=== PATIENT | female | born 1975 | race Caucasian/White ===

== ENCOUNTER 2017-04-21 13:15 | Day surgery (SDC) | payer BC, SELFPAY ==
[2017-04-16 15:20] LABS: Hematocrit 41.4 % (37-47); Hemoglobin 14.6 g/dl (12.0-15.0); Mean Corp Hgb Conc 35.3 g/gl (32-36); Mean Corpuscular Hgb 30.6 pg (27.0-32.0); Mean Corpuscular Volume 86.8 fL (81-99); Mean Platelet Vol. 8.6 fl (6.2-12.0); Platelet Count 221 K/mm3 (150-450); RBC Distribution Width CV 12.8 % (11.6-14.6); RBC Distribution Width SD 40.6 fl (35.1-43.9); Red Blood Count 4.77 M/mm3 (4.2-5.4); White Blood Count 6.2 K/mm3 (4.4-11.0)
[2017-04-16 15:28] LABS: Scan Indicated on CBC? Y/N NO
[2017-04-16 16:21] LABS: Prothrombin Time (Protime)PT. 13.1 SECONDS (11.7-14.9)
[2017-04-16 16:22] LABS: Partial Thromboplast Time 34.6 Seconds (24.1-36.2)
--- NOTE | 2017-04-21 13:23 | RAD_ITS ---
STUDY: X-RAY CHEST REASON FOR EXAM: Female, 42 years old. Preoperative evaluation. TECHNIQUE: PA and lateral views of the chest. COMPARISON: None. FINDINGS: The lungs are clear and expanded. There is no demonstrated pleural abnormality. Normal size heart. Normal mediastinum and domenica. Normal visualized pulmonary arteries. Normal visualized aortic arch and descending thoracic aorta. Normal visualized thoracic spine. Normal visualized ribs, clavicles, and shoulders. There is no demonstrated abnormality of the visualized soft tissue structures of the upper abdomen. RAD/Chest PA and Lateral IMPRESSION: Normal x-ray examination of the chest. Electronically Signed: Joni Stern MD at 13:37 EST Tel [phone], Service support ,
--- NOTE | 2017-04-21 13:24 | EKG12_ITS ---
Test Reason : PRE OP Blood Pressure : / mmHG Vent. Rate : 079 BPM Atrial Rate : 079 BPM P-R Int : 146 ms QRS Dur : 084 ms QT Int : 394 ms P-R-T Axes : 060 039 052 degrees QTc Int : 451 ms Normal sinus rhythm Normal ECG No previous ECGs available Confirmed by AMIRA ARAGON, ALO ([id number]), international editorial producer HEATH GARCIA ([id number] on 04/26/2017 3:44:43 PM Referred By: Karen Maguire Confirmed By:ALO COLLIER MD
[2017-04-21 13:52] LABS: Internal QC Validated? YES +Cl - CLEAR BKGD; Pregnancy, Urine Negative Negative
[2017-04-21 13:58] VITALS: BP 136/84; PULSE 79; RESP 16; TEMP 37.3; O2SAT 100; BMI 28.0
[2017-04-21 14:11] LABS: Thyroid Stim Hormone (TSH) 1.51 uIU/mL (0.358-3.74)
--- NOTE | 2017-04-21 15:00 | OV_PTH ---
PATIENT: FRANCISCA SEGURA LOC: [facility] [place] U#:[id number] AGE/SX: 42/F ROOM: RE04/21/[address]: Dr. Karen Maguire MD : [id number] BED: DIS: 04/21/2017 SPEC #: [id number] RECD: 04/22/17 08:36 STATUS: VANGIE KACY #: [id number] DANE: 04/21/17 15:[address]: Karen Maguire DEPT: SURGICAL PATHOLOGY RECD BY: Dilip Smith ENTERED: 04/22/17 09:00 SP TYPE: OVARY OTHR DR: Dr. Azul Maciel, DO Tissues: Ovary, NOS Procedures: Surgery Specimen Level IV HEADER OPERATION: Laparoscopic salpingo-oophorectomy PRE-OP DIAGNOSIS: Estrogen positive status, history of malignant neoplasm of breast TISSUE SUBMITTED: Bilateral tubes and ovaries MICROSCOPIC DIAGNOSIS Bilateral fallopian tubes and ovaries, salpingo-oophorectomy: One ovary ? fibroma/thecoma (0.3 cm in greatest dimension). Bilateral ovaries ? physiologic follicular cysts. Bilateral fallopian tubes - no pathologic diagnosis. Paratubal cyst. SJ:rg 04/26/17 MICROSCOPIC DESCRIPTION Slides are reviewed. GROSS DESCRIPTION Received in fixative is one container labeled with the patient's name and designated bilateral tubes and ovaries. The specimen consists of bilateral ovaries and bilateral fallopian tubes. The ovaries and fallopian tubes are present separately. No orientation is provided as of right or left. One of the ovaries measures 3 x 3 x 1.8 cm. Sections reveal multiple cysts. The largest cyst measures 1 cm in greatest dimension. The cysts are filled with clear fluid. The second ovary is similar appearance to first one and measures 3 x 3 x 2 cm. A minute burrows-white nodule is noted on the surface measuring 0.3 cm in greatest dimension. This area is inked black. Sections reveal multiple cysts. The largest cyst measures 1.5 cm in greatest dimension. The cysts are filled with clear fluid. The cyst wall is smooth. No papillations are identified in the cyst wall in both ovaries. One of the fallopian tubes measures 3 cm in length and 0.4 cm in diameter. Two paratubal cysts are noted measuring 0.5 and 1 cm in greatest dimension. The fimbrial end is identified. The second fallopian tube is received in multiple pieces and measures in aggregate 3.5 x 2.5 x 0.5 cm. The fimbrial end is identified. Sections of both fallopian tubes reveal unremarkable cut surfaces. Cable Tv Installer sections are submitted in six cassettes as follows: 1 & 2 ? one ovary, 3 & 4 ? second ovary (4 also contains the solid, burrows nodule on the ovarian surface), 5 ? one fallopian tube and paratubal cyst, 6 ? second fallopian tube (received in multiple pieces). / SAEID:calvin 04/22/17 TC:1 CPT: 16786 x2
--- NOTE | 2017-04-21 15:27 | PCM.DC ---
You will use the following diet at home:: No restrictions Discharge Activity: May not drive while taking narcotic pain medications., May Shower, May Take a Tub Bath Return to work on:: 04/26/17 May resume sexual activity in: 1-2 weeks - when comfortable Weight Bearing Status: Weight bearing as tolerated - limit to under 20# for 3-4 wks. Lifting Restrictions: 20 Additional Activity Instructions:: Resume activity as tolerated on 04/22/17 Start with walking, stairs, etc. Call your doctor if you observe: Fever of 101 or Higher, Inability to have a bowel movement, Using more than one pad per hour, Uncontrolled pain Change Dressing in (Days):: 14 Remove Dressing in (days):: 14 Cleanse incision/area with: Soap & Water, Keep Dressing Clean & Dry Additional Instructions: --You may take Tylenol 500 - 1000 mg by mouth every 8 hrs as needed for milder pain. -- Add OxyIR for severe pain. Allergies/Adverse Reactions: Allergies anastrozole [From Arimidex] Allergy (Verified 04/16/17 10:10) Rash Medications to take at Discharge Ibuprofen [Motrin] 400 mg PO Q6H PRN PRN 03/27/16 Levothyroxine [Synthroid] 75 mcg PO DAILY 03/27/16 Omeprazole [Prilosec] 20 mg PO QHS 03/27/16 Exemestane [Aromasin] 25 mg PO DAILY 04/16/17 Goserelin Acetate [Zoladex] 3.6 mg SQ QMONTH 04/16/17 Zoledronic Acid/Mannitol-Water [Zometa 4 mg/100 ml Injection] 4 mg IV QMONTH 04/16/17 Oxycodone [Oxyir] 5 - 10 mg PO Q6H PRN PRN 3 Days #20 tablet 04/21/17 The following prescriptions were given: Oxycodone [Oxyir] 5 - 10 mg PO Q6H PRN PRN 3 Days #20 tablet PRN Reason: Mod-Severe Pain (-11/24) Primary Care Physician: Azul Maciel DO [Primary Care Provider] - Please Follow Up With: Karen Maguire MD - [phone] When: in 2 wks for postoperative incision check. Proposed Discharge Date: 04/21/17
--- NOTE | 2017-04-21 15:35 | DCINST_ITS ---
You will use the following diet at home:: No restrictions Discharge Activity: May not drive while taking narcotic pain medications., May Shower, May Take a Tub Bath Return to work on:: 04/26/17 May resume sexual activity in: 1-2 weeks - when comfortable Weight Bearing Status: Weight bearing as tolerated - limit to under 20# for 3-4 wks. Lifting Restrictions: 20 Additional Activity Instructions:: Resume activity as tolerated on 04/22/17 Start with walking, stairs, etc. Call your doctor if you observe: Fever of 101 or Higher, Inability to have a bowel movement, Using more than one pad per hour, Uncontrolled pain Change Dressing in (Days):: 14 Remove Dressing in (days):: 14 Cleanse incision/area with: Soap & Water, Keep Dressing Clean & Dry Additional Instructions: --You may take Tylenol 500 - 1000 mg by mouth every 8 hrs as needed for milder pain. -- Add OxyIR for severe pain. Allergies/Adverse Reactions: Allergies anastrozole [From Arimidex] Allergy (Verified 04/16/17 10:10) Rash Medications to take at Discharge Ibuprofen [Motrin] 400 mg PO Q6H PRN PRN 03/27/16 Levothyroxine [Synthroid] 75 mcg PO DAILY 03/27/16 Omeprazole [Prilosec] 20 mg PO QHS 03/27/16 Exemestane [Aromasin] 25 mg PO DAILY 04/16/17 Goserelin Acetate [Zoladex] 3.6 mg SQ QMONTH 04/16/17 Zoledronic Acid/Mannitol-Water [Zometa 4 mg/100 ml Injection] 4 mg IV QMONTH 04/04 Oxycodone [Oxyir] 5 - 10 mg PO Q6H PRN PRN 3 Days #20 tablet 04/21/17 The following prescriptions were given: Oxycodone [Oxyir] 5 - 10 mg PO Q6H PRN PRN 3 Days #20 tablet PRN Reason: Mod-Severe Pain (-11/24) Primary Care Physician: Azul Maciel DO [Primary Care Provider] - Please Follow Up With: Karen Maguire MD - [phone] When: in 2 wks for postoperative incision check. Proposed Discharge Date: 04/21/17
[2017-04-21] MEDS: Bupiv/Epi 0.5% Mpf 30 ML Vial (15:48)
[2017-04-21 16:28] VITALS: BP 136/84; BP 136/85; PULSE 96; RESP 16; TEMP 36.8; O2SAT 95
[2017-04-21 16:30] VITALS: BP 136/84; BP 136/85; PULSE 97; RESP 16; O2SAT 94
[2017-04-21 16:45] VITALS: BP 136/84; BP 149/77; PULSE 97; RESP 16; O2SAT 96
[2017-04-21 17:02] VITALS: BP 136/84; BP 136/90; PULSE 87; RESP 16; TEMP 37; O2SAT 98
[2017-04-21 18:12] VITALS: BP 136/84
--- NOTE | 2017-04-21 18:28 | OP.PCM_ITS ---
Problem List (1) Carcinoma of breast, estrogen receptor positive Status: Chronic (2) Fear of developing breast cancer Status: Chronic Operative Report Date of Procedure: 04/21/17 PROCEDURE: Laparoscopic Bilateral Salpingoophorectomy PREOPERATIVE DIAGNOSIS: H/O estrogen receptor positive breast cancer. Prophylactic bilateral salpingo-oophorectomy recommended by oncologist POSTOPERATIVE DIAGNOSIS: H/O estrogen receptor positive breast cancer. Prophylactic bilateral salpingo-oophorectomy recommended by oncologist Surgeon: Karen Maguire MD Anesthesia: general anesthesia. Radha Ocasio CRNA EBL: minimal Complications: None Drains: Red Jones catheter used to drain the bladder prior to initiation of the case Fluids: LR replacement Findings; Normal appearing, anteverted uterus with prior C section scar noted. Small band of omentum adherent to L lower uterine segment (taken down). Fallopian tubes and ovaries are WNL. Gross inspection of bowel, omentum. liver edge also WNL. photos were taken of the uterus after Bilateral salpingo- oophorectomy Narrative account: After the risks, benefits, alternatives of procedure had been reviewed with the patient, informed consent was obtained. The patient was taken back to the Operating room with an IV running. she was positioned on the operating table in dorsal supine position, where she was given general anesthesia. Once asleep she was repositioned to the dorsal lithotomy position and prepped and draped in the usual sterile fashion. A red Jones catheter was used to drain the bladder prior to initiating the case. A sponge stick was placed into the vagina to allow manipulation of the uterus and cervix during the case. Attention was then turned to the anterior abdominal wall where 0.25 % Marcaine with epinephrine was instilled at the suprapubic and infraumbilical skin and at a point midway between in the midline. Skin incisions were then created in the midline at the suprapubic skin and at the infraumbilical skin and midway between the two. While maintaining upward traction of the anterior abdominal wall a Veress needle was inserted through the umbilical incision into the peritoneal cavity. There was free drop of saline, low opening pressure and free flow of CO2 noted. Once the intraabdominal pressure had reached 15 mm of mercury the Veress needle was removed and a bladeless 5 mm trocar was placed through infraumbilical skin incision into the peritoneal cavity. Correct placement was confirmed using the scope. Under direct visualization then with the patient in Trendelenburg position, a bladeless 5 mm trocar was inserted in through suprapubic skin incision into the peritoneal cavity and at a point midway between the infraumbilical and suprapubic trocars. The uterus as anteverted and both ovaries and fallopian tubes were WNL. The L fallopian tube and ovary were grasped and retracted medially and using a LigaSure device the fallopian tube and ovary were excised from the infundibulopelvic ligament, uteroovarian ligament and mesosalpinx. Excellent hemostasis was noted at the excision site. The L fallopian tube was brought to the anterior cul de sac and tucked there while the R salpingo-oophorectomy was then performed. In a similar manner the R fallopian tube and ovary were grasped and retracted medially and the fallopian tube and ovary were excised and set at the anterior cul de sac. The 5 mm suprapubic trocar was removed and the skin incision extended. A 10 mm bladeless trocar was then inserted through the suprapubic skin incision into the abdominal cavity under direct visualization. An EndoCatch bag was then introduced through the suprapubic trochar and both ovaries and fallopian tubes were placed into the bag. The bag was then brought through the fascia and skin, and the trocar was removed. Excellent hemostasis was noted by visualization of the pelvis, ovaries, and remaining mesosalpinx. At this point the the procedure was terminated. The pneumoperitoneum was reduced and the instruments and trocars were removed from he the anterior abdominal wall skin. The suprapubic fascial incision was closed with a figure of eight 1-0 Vicryl suture. The skin incisions were closed with 4-0 Monocryl in a subcuticular fashion. Steristrips were applied to the skin. The sponge stick was removed from the vagina. The patient was returned to dorsal supine position. She was awakened from general anesthesia. She was transferred to the recovery room bed in stable condition after tolerating the procedure well. Sponge, lap, needle and instrument counts were correct x two. Medications given preop and intraoperatively included: 10 cc of 1/2 % Marcaine with epinephrine --used as a subcutaneous block and Toradol 30 mg IV x one. For a complete listing of medications given preop and intraop , please see the anesthesia record.
== END 2017-04-21 18:33 | disposition home or self-care (01) ==
LOC: SDC 13:16 → ACINP 13:19 → AC 13:31
PROVIDERS: Anesthesiology; Family Provider Family Medicine; PCP Family Medicine; Visit Provider Obstetrics & Gynecology
PROC: (CPT 58661; principal; 2017-04-21 14:45)
DX: Z40.02 Encounter for prophylactic removal of ovary(s) (principal); C50.919 Malignant neoplasm of unspecified site of unspecified female breast; Z17.0 Estrogen receptor positive status [ER+]; N83.8 Other noninflammatory disorders of ovary, fallopian tube and broad ligament; D27.9 Benign neoplasm of unspecified ovary; E07.9 Disorder of thyroid, unspecified; Z79.899 Other long term (current) drug therapy; I10 Essential (primary) hypertension; K21.9 Gastro-esophageal reflux disease without esophagitis
CPT/HCPCS: 58661; 36415; 71046; 81025; 84443; 85027; 85610; 85730; 88305; 93005; J3010; J7120; J2405

== ENCOUNTER → 2017-10-27 14:12 | Outpatient (CLI) | payer BC, SELFPAY | PROVIDERS: Family Provider Family Medicine; PCP Family Medicine; Visit Provider Family Medicine | DX: N39.0 Urinary tract infection, site not specified (principal) | CPT/HCPCS: 87086 ==

== ENCOUNTER → 2017-12-18 07:57 | Outpatient (CLI) | payer BC, SELFPAY ==
[2017-12-18 10:12] LABS: T4 Free Direct 1.13 ng/dL (0.76-1.46); Thyroid Stim Hormone (TSH) 1.71 uIU/mL (0.358-3.74)
[2017-12-18 10:35] LABS: T3 Total - Triiodothyronine 1.17 ng/mL (0.6-1.81)
== END ==
PROVIDERS: Family Provider Family Medicine; PCP Family Medicine; Referring Provider Family Medicine; Visit Provider Family Medicine
DX: E03.9 Hypothyroidism, unspecified (principal)
CPT/HCPCS: 36415; 84439; 84443; 84480